=== PATIENT | female | born 1955 | race Caucasian/White ===

== ENCOUNTER → 2016-04-13 16:52 | Outpatient (CLI) | payer MEDICAID ==
[2012-06-11 06:39] VITALS: BMI 25.4
== END | disposition home or self-care (01) ==
LOC: D.MAMMO 03-23 16:00
DX: Z12.31 Encounter for screening mammogram for malignant neoplasm of breast (principal)

== ENCOUNTER → 2018-06-22 08:00 | Outpatient (CLI) | payer MEDICAID ==
[2012-06-11 06:39] VITALS: BMI 25.4
== END | disposition home or self-care (01) ==
LOC: D.MAMMO 06-11 13:00
PROVIDERS: ATTEND Family Medicine
DX: Z12.31 Encounter for screening mammogram for malignant neoplasm of breast (principal)

== ENCOUNTER → 2019-02-13 11:35 | Outpatient (CLI) | payer MEDICAID ==
[2012-06-11 06:39] VITALS: BMI 25.4
== END | disposition home or self-care (01) ==
LOC: D.HCCECHO 11:30 → D.HCCARDIO 11:30 → D.HCCECHO 11:35
PROVIDERS: ATTEND Internal Medicine Cardiovascular Disease
DX: I51.9 Heart disease, unspecified (principal)

== ENCOUNTER 2020-07-14 18:04 | Outpatient (CLI) | payer MEDICAID ==
[2012-06-11 06:39] VITALS: BMI 25.4
== END 2020-07-14 23:59 | disposition home or self-care (01) ==
LOC: D.MAMMO 18:04
PROVIDERS: ATTEND Family Medicine
DX: Z12.31 Encounter for screening mammogram for malignant neoplasm of breast (principal)